=== PATIENT | male | born 1995 | race Caucasian/White ===

== ENCOUNTER 2018-09-23 16:36 | Emergency (ER) | payer SELFPAY ==
[~2018-09-23] VITALS: Ht 167.6 cm; Wt 74.8 kg
[2018-09-23 16:57] VITALS: BP 126/75; Ht 167.6 cm; Wt 74.8 kg
== END 2018-09-23 18:52 | disposition left against medical advice (07) ==
LOC: ED 16:36
DX: Z53.21 Procedure and treatment not carried out due to patient leaving prior to being seen by health care provider (principal)